=== PATIENT | female | born 1955 | race Caucasian/White ===

== ENCOUNTER → 2021-02-17 13:26 | Outpatient (CLI) | payer MEDICARE | END | disposition home or self-care (01) | LOC: D.MRI 13:26 | PROVIDERS: ATTEND Orthopaedic Surgery | DX: M75.102 Unspecified rotator cuff tear or rupture of left shoulder, not specified as traumatic (principal) ==

== ENCOUNTER 2021-03-19 07:21 | Day surgery (SDC) | payer MEDICARE ==
[~2021-03-19] VITALS: Ht 162.6 cm; Wt 71.7 kg
[~2021-03-19 07:21] MED LIST: AMBIEN10 MG; LIPITOR80 MG PO; PROLIA INJ 660 MG/M1; PROTONIX20 MG; SINGULAIR10 MG; SYNTHROID88 MCG PO; VITAMIN D325 MC1 PO; ZANAFLEX2 M1
[2021-03-19 07:36] LABS: HEMATOCRIT 34.8 % (36.0-48.0); HEMOGLOBIN 11.1 g/dL (12-16); MCH 26.2 pg (26.0-34.0); MCHC 31.9 g/dL (31.0-37.0); MCV 82.3 fL (80.0-100.0); MEAN PLATELET VOLUME 9.4 fL (7.4-10.4); RBC 4.23 10x6/uL (4.00-5.40); RDW 14.6 % (11.5-14.5); WBC 5.6 10x3/uL (4.8-10.8)
[2021-03-19 09:52] VITALS: Ht 162.6 cm; Wt 71.7 kg
--- NOTE | 2021-03-20 05:59 | OP ---
PATIENT NAME: EZ SOLANO MEDICAL RECORD: [id number] :51 LOCATION:[facility] ADMISSION DATE: SURGEON: CRISTOBAL FORD DO DATE OF OPERATION: 03/19/2021 PROCEDURE PERFORMED: Left shoulder arthroscopy with rotator cuff repair, distal clavicle excision, biceps tenodesis, subacromial decompression with acromioplasty. PREOPERATIVE DIAGNOSIS: Left shoulder rotator cuff tear, full thickness supraspinatus, SLAP tear, subacromial impingement, and AC joint arthritis. POSTOPERATIVE DIAGNOSIS: Left shoulder rotator cuff tear, full thickness supraspinatus, SLAP tear, subacromial impingement, and AC joint arthritis. INDICATIONS: Ms. Solano is a 65-year-old female who injured her left shoulder. She fractured a greater tuberosity and had continued pain. An MRI was done due to her pain and weakness and showed the above findings. I then had discussion with her that we could fix her rotator cuff and do a biceps tenodesis and clean up the other stuff. She is okay with that. She is aware of the risk of this including infection, bleeding, damage to nerves or vessels, need for further surgery, continued pain, arthrofibrosis or adhesive capsulitis, need for further surgery, failure of implants and even and she signed the consent. SURGEON: Cristobal Ford DO DESCRIPTION OF PROCEDURE: The patient was taken to the operative suite after getting a block by anesthesia preoperative area, given 900 mg clindamycin laid in the right lateral decubitus position with the left shoulder up sedated and LMA was placed. The left shoulder was then prepped and draped in sterile fashion. A timeout was performed and everyone was in agreement with correct side, site, patient and procedure. We began by inflating the shoulder joint with 60 mL normal saline through an 18-gauge spinal needle and established a posterior portal with an 11-blade scalpel. Trocar was then entered into the joint. I then established an anterior portal with 18-gauge spinal needle and 11-blade scalpel, trocar entered inside the SLAP tear, brought to the burner and did a biceps tenotomy at that time and looked around the shoulder joint. She did have an essentially full thickness tear of the supraspinatus at the anterior fibers and debrided it at that time to get a better look at the tear. I then went to the subacromial space. After checking the joint and it looked good. Nothing in the inferior gutter and her subscapularis looked good as well as the infraspinatus. I then went to the subacromial space and established a lateral portal with 18-gauge spinal needle and 11 blade scalpel. Trocar brought in and then a subacromial decompression with acromioplasty and distal clavicle excision through the anterior portal, opened up the AC joint, approximately 7 mm. I then marked the rotator cuff tear on the articular side after going back into the joint with the camera with an 18-gauge spinal needle, I then reprepped the shoulder and opened up the lateral portal and then made careful dissection down to the rotator cuff tendon tear put in a medial row anchor and tendon with #2 suture tapes were then brought over to a lateral row repair. I then put a Regeneten implant on and stapled it in place. We went to the anterior humerus, made a small incision, made careful dissection down to the long head of the biceps tendon and put a unicortical hole and put a 2.9 JuggerLoc with the loop and looped the biceps tendon through and cinched it down to the anterior humerus and then cut the excess suture from the loop and went back through the tendon OPERATIVE REPORT [id number] EZ SOLANO with a free needle using a suture and tied it down to cut the excess tendon and suture, then irrigated. Shine Kyle, certified surgical financial administrative assistant then closed the opens sites with 2-0 Vicryl in interrupted fashion, 4-0 Monocryl ran on the skin and with the 2 portal sites with 4-0 Monocryl inverted fashion and then did Dermabond glue and all the sides. She was then awakened and taken to recovery in stable condition. ESTIMATED BLOOD LOSS: Minimal. COMPLICATIONS: None. TRANSINT:[id number] Voice Confirmation ID: [id number] DOCUMENT ID: [id number] CRISTOBAL FORD DO at 0559 CC: [id number] DICTATION DATE: 03/19/21 1523 SCIENCE EDITOR: 03/20/21 0026 [facility] [place] 03/19/21 [id number] [place] [address]
== END 2021-03-19 16:05 | disposition home or self-care (01) ==
LOC: D.OPS 07:21
PROVIDERS: Anesthesiology; ATTEND Orthopaedic Surgery
DX: M13.812 Other specified arthritis, left shoulder (principal); M75.42 Impingement syndrome of left shoulder; S43.432A Superior glenoid labrum lesion of left shoulder, initial encounter; M75.122 Complete rotator cuff tear or rupture of left shoulder, not specified as traumatic; X58.XXXA Exposure to other specified factors, initial encounter; M25.512 Pain in left shoulder